=== PATIENT | female | born 1995 | race Caucasian/White ===

== ENCOUNTER 2020-06-02 09:18 | Emergency (ER) | payer BC, SELFPAY ==
[2020-06-02 09:22] VITALS: BP 128/77; PULSE 97; RESP 17; TEMP 37.1; O2SAT 100
[2020-06-02] MEDS: ONDANSETRON HCL ODT 4 MG TABLET PO (10:07)
[2020-06-02] MEDS: LORazepam (*CRX) 1 MG TABLET PO (10:07)
[2020-06-02] MEDS: FAMOTIDINE 20 MG TABLET PO (10:07)
--- NOTE | 2020-06-02 10:39 | ED.GENADULT ---
HPI - General Adult General Chief complaint: Nausea/Vomiting/Diarrhea Stated complaint: n/v Time Seen by Provider: 06/02/20 09:25 Source: patient Mode of arrival: ambulatory Limitations: no limitations History of Present Illness HPI narrative: Patient is a 24-year-old female who presents with irritable bowel syndrome with diarrhea since her boyfriend broke up with her 2 days ago also noting nausea noting similar occurrence when she experiences stress denies suicidal or homicidal ideation presents in no distress denies other concerns was unable to go to work today due to her symptomology Related Data Home Medications Medication Instructions Recorded Confirmed cetirizine [Zyrtec] 10 mg PO DAILY 06/02/20 Allergies Allergy/AdvReac Type Severity Reaction Status Date / Time No Known Allergies Allergy Verified 06/02/20 09:27 Review of Systems Review of Systems: All systems reviewed & are unremarkable except as noted in HPI and below PMFSH Past Medical History Medical History (Updated 06/02/20 @ 10:43 by Andrae Palacio PA-C) Anxiety Family History Family History (Updated 05/08/18 @ 10:30 by DOCTOR UNKNOWN) Father Family history of thyroid disease Mother Family history of thyroid disease Hypertension Sibling Family history of thyroid disease Grandparent Diabetes mellitus Family history of hypercholesterolemia Family history of glaucoma Hypertension Family history of cardiovascular disease Cerebrovascular accident Family history of malignant neoplasm Social History Social History Smoking status: Never smoker Alcohol intake: never Gender identity (if verbalized by the patient): Female Exam Narrative: Exam Narrative: GENERAL: Well-appearing, well-nourished, and in no acute distress. HEAD: Normocephalic, atraumatic. EYES: PERRLA and EOMI. ENT: Nares clear, no rhinorrhea or epistaxis. Mucous membranes moist. NECK: Supple. No adenopathy or masses. CHEST: Clear to auscultation. No respiratory distress. No wheezes rales or rhonchi HEART: Regular rate and rhythm. No murmur heard. Normal peripheral pulses. ABDOMEN: Soft, nontender, nondistended EXTREMITIES: Normal range of motion. No edema. SKIN: Warm, dry, no rash. NEURO: No focal deficits. Alert and oriented x3. Cranial nerves II through XII grossly intact PSYCH: Normal mood and affect. Course Course Emergency Course: Patient in the room will be discharged home given medications felt appropriate for outpatient reevaluation Vital Signs Vital signs: Vital Signs Temperature 98.7 F 06/02/20 09:22 Pulse Rate 97 06/02/20 09:22 Respiratory Rate 17 06/02/20 09:22 Blood Pressure 128/77 06/02/20 09:22 Pulse Oximetry 100 06/02/20 09:22 Temperature 98.7 F 06/02/20 09:22 Pulse Rate 97 06/02/20 09:22 Respiratory Rate 17 06/02/20 09:22 Blood Pressure 128/77 06/02/20 09:22 Pulse Oximetry 100 06/02/20 09:22 Medical Decision Making MDM Narrative Medical decision making narrative: Patient in the room in no distress aware of case findings treatment plan diagnosis felt appropriate for discharge home will be given primary care resources Vital Signs Vital Signs: Vital Signs Temperature 98.7 F 06/02/20 09:22 Pulse Rate 97 06/02/20 09:22 Respiratory Rate 17 06/02/20 09:22 Blood Pressure 128/77 06/02/20 09:22 Pulse Oximetry 100 06/02/20 09:22 Temperature 98.7 F 06/02/20 09:22 Pulse Rate 97 06/02/20 09:22 Respiratory Rate 17 06/02/20 09:22 Blood Pressure 128/77 06/02/20 09:22 Pulse Oximetry 100 06/02/20 09:22 Discharge Plan Discharge Clinical Impression: Diarrhea Patient Disposition: Home, Self-Care Condition: Stable Instructions: Antibiotic Form, Acute Diarrhea (ED) Additional Instructions: Follow up with your primary care doctor tommorrow to set up for reevaluation. Go to ER for worsening
[2020-06-02 11:07] VITALS: BP 123/73; PULSE 88; RESP 17; O2SAT 100
== END 2020-06-02 11:10 | disposition home or self-care (01) ==
PROVIDERS: Emergency Provider Emergency Medicine
DX: R19.7 Diarrhea, unspecified (principal)
CPT/HCPCS: 99283; A9270

== ENCOUNTER 2020-06-02 19:34 | Emergency (ER) | payer BC, SELFPAY ==
[2020-06-02 19:35] VITALS: BP 110/73; PULSE 94; RESP 16; O2SAT 100
[2020-06-02] MEDS: ONDANSETRON HCL ODT 4 MG TABLET PO (20:14)
[2020-06-02] MEDS: LORazepam (*CRX) 1 MG TABLET PO (20:14)
[2020-06-02] MEDS: HYOSCYAMINE SULFATE 0.125 MG TABLET PO (20:14)
--- NOTE | 2020-06-02 20:15 | ED.NAVMDI ---
HPI - Nausea/Vomiting/Diarrhea General Chief complaint: Nausea/Vomiting/Diarrhea Stated complaint: n/v Time Seen by Provider: 06/02/20 19:39 Source: patient, family and old records reviewed Mode of arrival: ambulatory Limitations: no limitations History of Present Illness HPI Narrative: Patient is a 24-year-old female who presents to emergency department for evaluation of GI upset patient is going through a break-up with history of IBS which onset discomfort of the abdomen patient notes a few loose stools since this morning when she was evaluated patient notes nausea but denies emesis notes that she is able to tolerate p.o. intake has not taken anything for her symptoms since she left the emergency department and on arrival is in no distress Related Data Home Medications Medication Instructions Recorded Confirmed cetirizine [Zyrtec] 10 mg PO DAILY 06/02/20 Allergies Allergy/AdvReac Type Severity Reaction Status Date / Time No Known Allergies Allergy Verified 06/02/20 19:35 Review of Systems Review of Systems: All systems reviewed & are unremarkable except as noted in HPI and below PMFSH Past Medical History Medical History Anxiety Family History Family History (Updated 05/08/18 @ 10:30 by DOCTOR UNKNOWN) Father Family history of thyroid disease Mother Family history of thyroid disease Hypertension Sibling Family history of thyroid disease Grandparent Diabetes mellitus Family history of hypercholesterolemia Family history of glaucoma Hypertension Family history of cardiovascular disease Cerebrovascular accident Family history of malignant neoplasm Social History Social History Smoking status: Never smoker Alcohol intake: never Gender identity (if verbalized by the patient): Female Exam Narrative: Exam Narrative: GENERAL: Well-appearing, well-nourished, and in no acute distress. HEAD: Normocephalic, atraumatic. EYES: PERRLA and EOMI. ENT: Nares clear, no rhinorrhea or epistaxis. Mucous membranes moist. CHEST: Clear to auscultation. No respiratory distress. No wheezes rales or rhonchi HEART: Regular rate and rhythm. No murmur heard. Normal peripheral pulses. ABDOMEN: Soft, mild tenderness of the abdomen no rebound or guarding, nondistended EXTREMITIES: Normal range of motion. No edema. SKIN: Warm, dry, no rash. NEURO: No focal deficits. Alert and oriented x3. PSYCH: Normal mood and affect. Course Course Emergency Course: Patient in the room in no distress aware of case findings treatment plan and diagnosis Vital Signs Vital signs: Vital Signs Pulse Rate 94 06/02/20 19:35 Respiratory Rate 16 06/02/20 19:35 Blood Pressure 110/73 06/02/20 19:35 Pulse Oximetry 100 06/02/20 19:35 Pulse Rate 94 06/02/20 19:35 Respiratory Rate 16 06/02/20 19:35 Blood Pressure 110/73 06/02/20 19:35 Pulse Oximetry 100 06/02/20 19:35 MDM - Nausea/Vomiting/Diarrhea MDM Narrative Medical decision making narrative: Patient with likely IBS symptoms with history of similar occurrence will be sent home with medications this time Discharge Plan Discharge Clinical Impression: Diarrhea Patient Disposition: Home, Self-Care Condition: Stable Instructions: Antibiotic Form, Acute Diarrhea (ED) Additional Instructions: Follow up with your primary care doctor tommorrow to set up for reevaluation in the next 7 days. Go to ER for worsening pain, nausea/vomitting, fever/chills, chest pain, shortness of breath, blood in stools or urine, etc. or any other concerns. Take any prescribed medications as directed. Stay well-hydrated If you do not have a drug allergy to tylenol and can tolerate it then take tylenol as needed for discomfort/pain. Prescriptions: New hyoscyamine sulfate [Levsin] 0.125 mg tablet 0.125 mg PO QID Qty: 7 RF: 0 o
[2020-06-02 20:43] VITALS: BP 131/85; PULSE 82; RESP 17; O2SAT 100
== END 2020-06-02 20:45 | disposition home or self-care (01) ==
PROVIDERS: Emergency Provider Family Medicine
DX: R19.7 Diarrhea, unspecified (principal)
CPT/HCPCS: 99283; A9270

== ENCOUNTER 2020-08-08 14:08 | Emergency (ER) | payer BC, SELFPAY ==
[2020-08-08 14:19] VITALS: BP 115/66; PULSE 94; RESP 18; TEMP 35.9; O2SAT 100
--- NOTE | 2020-08-08 14:25 | ED.NAVMDI ---
HPI - Nausea/Vomiting/Diarrhea General Chief complaint: Nausea/Vomiting/Diarrhea Stated complaint: n/v/d Time Seen by Provider: 08/08/20 14:13 Source: RN notes reviewed History of Present Illness HPI Narrative: Patient presents to emergency department from home for nausea and vomiting. Patient states that she developed nausea vomiting approximately 1 day ago states associate with generalized abdominal pain described as cramping. States she has been having intermittent diarrhea for the past several weeks. Denies any fevers or chills chest pain shortness of breath or any other symptoms. She states she took no medication for the symptoms she denies any other symptoms at this time Related Data Home Medications Medication Instructions Recorded Confirmed cetirizine [Zyrtec] 10 mg PO DAILY 06/02/20 Allergies Allergy/AdvReac Type Severity Reaction Status Date / Time No Known Allergies Allergy Verified 06/02/20 19:35 Review of Systems Review of Systems: Narrative: Gen.: Denies fevers or chills ENT: Denies congestion Respiratory: Denies shortness of breath or cough CV: Denies chest pain or palpitations GI: See HPI denies burning, urgency, frequency or hematuria Musculoskeletal: Denies back pain or muscle pain Neuro: Denies numbness, tingling, weakness or focal weakness Skin: Denies rash Except as documented, all other systems reviewed and negative [facility] Past Medical History Medical History Anxiety Family History Family History (Updated 05/08/18 @ 10:30 by DOCTOR UNKNOWN) Father Family history of thyroid disease Mother Family history of thyroid disease Hypertension Sibling Family history of thyroid disease Grandparent Diabetes mellitus Family history of hypercholesterolemia Family history of glaucoma Hypertension Family history of cardiovascular disease Cerebrovascular accident Family history of malignant neoplasm Social History Social History Smoking status: Never smoker Alcohol intake: never Gender identity (if verbalized by the patient): Female Exam Narrative: Exam Narrative: APPEARANCE: No acute distress, nontoxic, resting in bed HEENT: Normocephalic, atraumatic, OMM RESPIRATORY: No respiratory distress, clear to auscultation bilaterally with no rhonchi wheezing or rales CARDIOVASCULAR: RRR s murmur ABDOMINAL: Soft, nondistended, diffusely tender to palpation no rebound or guarding MUSCULOSKELETAl: Moves all extremities. No clubbing, cyanosis or edema. NEURO: Awake and alert. Following commands, speech normal, no focal deficits SKIN:: Warm, dry. Normal Color PSYCHIATRIC: Normal affect/mood Course Course Emergency Course: Reviewed old records Patient states that they are feeling much better at this time. States abdominal pain has resolved. Repeat abdominal exam shows the patient's abdomen to be soft and nontender. Discussed with patient results of workup and diagnosis. Discussed need for follow-up with primary care physician, reasons to return to the emergency department in proper use of medication. Patient understands and agrees to current treatment plan Vital Signs Vital signs: Vital Signs Temperature 96.7 F L 08/08/20 14:19 Pulse Rate 94 08/08/20 14:19 Respiratory Rate 18 08/08/20 14:19 Blood Pressure 115/66 08/08/20 14:19 Pulse Oximetry 100 08/08/20 14:19 Temperature 96.7 F L 08/08/20 14:19 Pulse Rate 94 08/08/20 14:19 Respiratory Rate 18 08/08/20 14:19 Blood Pressure 115/66 08/08/20 14:19 Pulse Oximetry 100 08/08/20 14:19 MDM - Nausea/Vomiting/Diarrhea MDM Narrative Medical decision making narrative: Patient's abdomen is soft without significant pain or signs of surgical abdomen on serial exams. Lab and x-ray evaluations are reviewed and patient is felt to be a reasonable candidate for outpatient management. Patient was i
[2020-08-08] MEDS: SODIUM CHLORIDE 0.9% IV 1,000 ML 999 ML IV CONT (14:28)
[2020-08-08 14:31] LABS: Basophils Percent Auto 0.5 % (0.2-1.2); Eosinophils Absolute Auto 0.1 K/mm3 (0-0.3); Eosinophils Percent Auto 0.9 % (0-4.4); Hematocrit 41.9 % (37.0-47.0); Hemoglobin 14.1 g/dL (12.0-15.0); Immature Granulocyte Absolute 0.02 K/mm3 (0.00-0.031); Immature Granulocyte Percent A 0.2 % (0-0.5); Lymphocytes Percent Auto 18.9 % (18.3-44.2); Mean Corpuscular HGB Conc 33.7 g/dl (32-36); Mean Corpuscular Hemoglobin 30.6 pg (26-34); Mean Corpuscular Volume 90.9 fl (80-100); Mean Platelet Volume 8.6 fl (7.4-10.4); Monocytes Absolute Auto 0.3 K/mm3 (0.1-0.6); Monocytes Percent Auto 3.2 % (2.6-8.5); Neutrophils Absolute Auto 6.5 K/mm3 (1.3-6.7); Neutrophils Percent Auto 76.3 % (45.5-73.1); Platelet Count Result 351 k/mm3 (150-375); Red Blood Count 4.61 M/mm3 (4.2-5.4); White Blood Count 8.5 K/mm3 (4.5-10.0)
[2020-08-08] MEDS: ONDANSETRON INJ 4 MG/2 ML VIAL IV PUSH (14:31)
[2020-08-08] MEDS: FAMOTIDINE 20 MG/2 ML VIAL IV PUSH (14:31)
[2020-08-08 14:51] LABS: Alanine Aminotransferase 12 U/L (4-35); Albumin Level 4.7 g/dL (3.5-5.1); Alkaline Phosphatase 81 U/L (38-126); Anion Gap 8 mmol/L (8-16); Aspartate Amino Transferase 28 U/L (14-36); Bilirubin,Total 0.2 mg/dL (0.2-1.3); Blood Urea Nitrogen 9 mg/dL (7-17); Calcium 9.5 mg/dL (8.4-10.2); Carbon Dioxide 26 mmol/L (22-30); Chloride 106 mmol/L (98-107); Estimated CRCL calculation 123 ml/min; Estimated Glomerular Filt Rate > 60; Glucose 112 mg/dL (65-105); Lipase 49 U/L (23-300); Potassium 3.6 mmol/L (3.4-5.0); Sodium 140 mmol/L (137-145)
[2020-08-08 15:33] LABS: Add Urine Microscopic? YES; Appearance Urine Clear (Clear); Bacteria Urine Trace /hpf; Bilirubin Urine Negative (Negative); Blood Urine Negative (Negative); Color Urine Straw (Yellow); Glucose Urine UA Negative (Negative); Ketones Urine 1+ mg/dL (Negative); Leukocyte Esterase Ur Trace LEU/UL (Negative); Nitrate Urine Negative (Negative); Protein Urine Negative (Negative); RBC Urine 0-2 /hpf (0-2); Specific Grav Ur 1.008 (1.001-1.035); Squamous Epithelial Cell Urine Few /hpf (Few); Transitional Epi Cells Urine Rare /hpf (None Seen); Urobilinogen Urine Negative mg/dL (<2.0); WBC Urine 0-3 /hpf
== END 2020-08-08 16:33 | disposition home or self-care (01) ==
PROVIDERS: Emergency Provider Emergency Medicine
DX: R11.2 Nausea with vomiting, unspecified (principal); R10.84 Generalized abdominal pain
CPT/HCPCS: 36415; 80053; 81001; 83690; 85025; 96361; 96374; 96375; 99284; J0131; J2405; J7030

== ENCOUNTER 2021-08-11 18:37 | Emergency (ER) | payer OTHER, BC, SELFPAY ==
[2021-08-11 18:48] VITALS: BP 121/88; PULSE 104; RESP 16; TEMP 36.9; O2SAT 97
--- NOTE | 2021-08-11 19:20 | ED.NAVMDI ---
HPI - Nausea/Vomiting/Diarrhea General Chief complaint: Nausea/Vomiting/Diarrhea Stated complaint: VOMITING/DIARRHEA/ABD PAIN Time Seen by Provider: 08/11/21 19:05 Source: patient, RN notes reviewed and old records reviewed Mode of arrival: ambulatory Limitations: no limitations History of Present Illness HPI Narrative: 25-year-old female who presents to [facility] with complaints of nausea and vomiting since 729 today with diarrhea. Patient states around 3 PM she was feeling better ate a tuna fish sandwich and started with diarrhea again with last stool around 5 PM tonight. Patient states that she has a lot of digestives issues thinks she may have IBS bur has not been formally diagnosed. Patient has some abdominal cramping with no sharp abdominal pain stated, no McBurney point tenderness or any flank pain noted on exam. Patient did have emesis while in exam room. MD elicited complaint: nausea, vomiting, diarrhea and other (abdominal cramping) Onset (ago): day(s) (1) Description of vomiting: food contents Description of diarrhea: watery Associated nausea: Yes Associated abdominal pain: Yes Location of pain: other (mid abdominal area) Pain consistency: intermittent Severity: moderate Pain scale (0-10): 4 Quality: cramping Relieving factors: none Related Data Home Medications Medication Instructions Recorded Confirmed cetirizine [Zyrtec] 10 mg PO DAILY 06/02/20 Allergies Allergy/AdvReac Type Severity Reaction Status Date / Time No Known Allergies Allergy Verified 06/02/20 19:35 Review of Systems Review of Systems: CONSTITUTIONAL: Denies fever, chills, or sweats. EYES: Denies visual changes, redness, or discharge. ENT: Positive for some nasal rhinorrhea,denies any congestion, sore throat, or otalgia. CARDIOVASCULAR: Denies chest pain, palpitations, or edema. RESPIRATORY: Denies cough or dyspnea. GASTROINTESTINAL: mid abdominal cramping abdominal pain, nausea, vomiting, and diarrhea. GENITOURINARY: Denies dysuria or hematuria. SKIN: Denies rash or itching. MUSCULOSKELETAL: Denies back pain, joint pain, or myalgia. NEUROLOGIC: Denies headache, numbness, or weakness. PSYCHIATRIC: Denies anxiety or depression. All systems reviewed & are unremarkable except as noted in HPI and below PMFSH Past Medical History Medical History (Updated 08/11/21 @ 19:47 by Hanny Cerda NP) Anxiety Surgical History Surgical History (Updated 08/11/21 @ 19:39 by Hanny Cerda NP) No history of previous surgery Family History Family History Father Family history of thyroid disease Mother Family history of thyroid disease Hypertension Sibling Family history of thyroid disease Grandparent Diabetes mellitus Family history of hypercholesterolemia Family history of glaucoma Hypertension Family history of cardiovascular disease Cerebrovascular accident Family history of malignant neoplasm Social History Social History Smoking status: Never smoker Alcohol intake: never Gender identity (if verbalized by the patient): Female Comments At time of signature, agree with nursing past medical, surgical, social and family history. There is no relevant family history pertinent to the presenting complaint Exam Narrative: GENERAL: Well-appearing, well-nourished, and in mild acute distress. HEAD: Normocephalic, atraumatic. EYES: PERRLA and EOMI. ENT: Nares patent with some clear rhinorrhea no epistaxis. Mucous membranes moist. TMs normal with good light reflex, throat pink with no lesions or exudates no tonsil enlargement NECK: Supple. No lymphadenopathy CHEST: Clear to auscultation. No respiratory distress. SaO2 97% on room air HEART: Regular rate and rhythm. No murmur heard. Normal peripheral pulses. ABDOMEN: Soft, nontender to palpation with no McBurney point tenderness, nondistended, normal active b
[2021-08-11] MEDS: ONDANSETRON HCL ODT 4 MG TABLET SUBLINGUAL (19:40)
== END 2021-08-11 19:55 | disposition home or self-care (01) ==
PROVIDERS: Emergency Provider Registered Nurse; PCP Family Medicine
DX: K52.9 Noninfective gastroenteritis and colitis, unspecified (principal); F41.9 Anxiety disorder, unspecified
CPT/HCPCS: 87804; 99213; A9270; G0463

== ENCOUNTER 2021-08-12 13:57 | Emergency (ER) | payer OTHER, BC, SELFPAY ==
[2021-08-12 13:59] VITALS: BP 114/70; PULSE 86; RESP 16; TEMP 36.2; O2SAT 100
[2021-08-12] MEDS: PROMETHAZINE HCL 25 MG/ML AMPUL 12.5 MG IV PUSH (14:29)
[2021-08-12] MEDS: SODIUM CHLORIDE 0.9% IV 1,000 ML 999 ML IV CONT (14:29)
[2021-08-12 14:39] LABS: Basophils Percent Auto 0.3 % (0.2-1.2); Eosinophils Percent Auto 0.2 % (0-4.4); Hematocrit 41.3 % (37.0-47.0); Immature Granulocyte Absolute 0.05 K/mm3 (0.00-0.031); Immature Granulocyte Percent A 0.4 % (0-0.5); Lymphocytes Absolute Auto 1.75 K/mm3 (0.9-3.2); Lymphocytes Percent Auto 15.7 % (18.3-44.2); Mean Corpuscular HGB Conc 33.9 g/dl (32-36); Mean Corpuscular Hemoglobin 31.8 pg (26-34); Mean Corpuscular Volume 93.9 fl (80-100); Mean Platelet Volume 8.9 fl (7.4-10.4); Monocytes Absolute Auto 0.6 K/mm3 (0.1-0.6); Monocytes Percent Auto 5.2 % (2.6-8.5); Neutrophils Absolute Auto 8.7 K/mm3 (1.3-6.7); Neutrophils Percent Auto 78.2 % (45.5-73.1); Platelet Count Result 379 k/mm3 (150-375); White Blood Count 11.2 K/mm3 (4.5-10.0)
[2021-08-12 14:47] LABS: Alanine Aminotransferase 20 U/L (4-35); Albumin Level 4.9 g/dL (3.5-5.1); Alkaline Phosphatase 79 U/L (38-126); Anion Gap 14 mmol/L (8-16); Aspartate Amino Transferase 31 U/L (14-36); Bilirubin,Total 0.6 mg/dL (0.2-1.3); Blood Urea Nitrogen 12 mg/dL (7-17); Calcium 9.3 mg/dL (8.4-10.2); Carbon Dioxide 21 mmol/L (22-30); Chloride 106 mmol/L (98-107); Estimated CRCL calculation 125 ml/min; Estimated Glomerular Filt Rate > 60; Glucose 104 mg/dL (65-110); Lipase 56 U/L (23-300); Potassium 3.8 mmol/L (3.4-5.0); Sodium 141 mmol/L (137-145)
--- NOTE | 2021-08-12 15:04 | ED.NAVMDI ---
HPI - Nausea/Vomiting/Diarrhea General Chief complaint: Nausea/Vomiting/Diarrhea Stated complaint: N/V/D Time Seen by Provider: 08/12/21 14:12 History of Present Illness HPI Narrative: Patient is a 25-year-old female who presents ER with nausea/vomiting/diarrhea. Ongoing over the last couple days. Was seen in urgent care yesterday and given Zofran. She reports she had 7 episodes of emesis today despite the Zofran so she came in for further evaluation. No fevers or chills or sweats. Diffuse abdominal cramping. Diarrhea has slowed down. No blood in stool or vomit. No known sick contacts. Related Data Home Medications Medication Instructions Recorded Confirmed cetirizine [Zyrtec] 10 mg PO DAILY 06/02/20 Allergies Allergy/AdvReac Type Severity Reaction Status Date / Time No Known Allergies Allergy Verified 06/02/20 19:35 Review of Systems Review of Systems: All systems reviewed & are unremarkable except as noted in HPI and below Constitutional: Constitutional: Denies chills, Denies fever(s) and Denies weakness ENT: Denies nasal congestion and Denies sore throat Cardiovascular: Cardiovascular: Denies chest pain, Denies rapid heart rate and Denies radiating jaw, neck or arm pain Respiratory: Respiratory: Denies cough and Denies dyspnea Gastrointestinal: Gastrointestinal: Reports abdominal pain, Denies heartburn, Reports diarrhea, Reports nausea and Reports vomiting Genitourinary: Genitourinary: Denies nocturia, Denies dysuria and Denies flank pain PMFSH Past Medical History Medical History (Updated 08/12/21 @ 18:03 by Shyam Bertrand MD) Anxiety Surgical History Surgical History (Updated 08/11/21 @ 19:39 by Hanny Cerda NP) No history of previous surgery Family History Family History Father Family history of thyroid disease Mother Family history of thyroid disease Hypertension Sibling Family history of thyroid disease Grandparent Diabetes mellitus Family history of hypercholesterolemia Family history of glaucoma Hypertension Family history of cardiovascular disease Cerebrovascular accident Family history of malignant neoplasm Social History Social History Smoking status: Never smoker Alcohol intake: never Gender identity (if verbalized by the patient): Female Exam Narrative: GENERAL: Well-appearing, well-nourished, and in no acute distress. HEAD: Normocephalic, atraumatic. CHEST: Clear to auscultation. No respiratory distress. HEART: Regular rate and rhythm. Normal peripheral pulses. ABDOMEN: Soft, nontender, nondistended. EXTREMITIES: Normal range of motion. No edema. SKIN: Warm, dry, no rash. NEURO: Alert and oriented x3. PSYCH: Normal mood and affect. Course Course Emergency Course: Patient feeling much better after Phenergan. Able to tolerate oral fluids. Discharge home. Vital Signs Vital signs: Vital Signs Temperature 97.2 F L 08/12/21 13:59 Pulse Rate 86 08/12/21 13:59 Respiratory Rate 16 08/12/21 13:59 Blood Pressure 114/70 08/12/21 13:59 Pulse Oximetry 100 08/12/21 13:59 Temperature 97.2 F L 08/12/21 13:59 Pulse Rate 86 08/12/21 13:59 Respiratory Rate 16 08/12/21 13:59 Blood Pressure 114/70 08/12/21 13:59 Pulse Oximetry 100 08/12/21 13:59 MDM - Nausea/Vomiting/Diarrhea Lab Data Result diagrams: 08/12/21 14:33 08/12/21 14:33 Labs: Lab Results 08/12/21 08/12/21 08/12/21 Range/Units 14:33 14:33 14:33 WBC 11.2 H (4.5-10.0) K/mm3 RBC 4.40 (4.2-5.4) M/mm3 Hgb 14.0 (12.0-15.0) g/dL Hct 41.3 (37.0-47.0) % MCV 93.9 (80-100) fl MCH 31.8 (26-34) pg MCHC 33.9 (32-36) g/dl RDW 13.0 (11.5-14.5) % Plt Count 379 H (150-375) k/mm3 MPV 8.9 (7.4-10.4) fl Immature Gran % (Auto) 0.4 (0-0.5) % Neut % (Auto) 78.2
[2021-08-12 15:29] LABS: Add Urine Microscopic? YES; Appearance Urine Cloudy (Clear); Bacteria Urine Trace /hpf; Bilirubin Urine Negative (Negative); Blood Urine Negative (Negative); Color Urine Yellow (Yellow); Glucose Urine UA Negative (Negative); Ketones Urine 2+ mg/dL (Negative); Leukocyte Esterase Ur Trace LEU/UL (Negative); Mucus Urine Heavy /lpf; Nitrate Urine Negative (Negative); Protein Urine 2+ mg/dL (Negative); Squamous Epithelial Cell Urine Many /hpf (Few); Urobilinogen Urine Negative mg/dL (<2.0)
[2021-08-12 15:52] LABS: Specific Grav Ur 1.032 (1.001-1.035)
[2021-08-12 18:17] VITALS: BP 135/78; PULSE 78; RESP 18; O2SAT 99
== END 2021-08-12 18:18 | disposition home or self-care (01) ==
PROVIDERS: Emergency Provider Emergency Medicine; PCP Family Medicine
DX: K52.9 Noninfective gastroenteritis and colitis, unspecified (principal)
CPT/HCPCS: 36415; 80053; 81001; 83690; 85025; 87086; 87088; 96361; 96374; 99284; J2550; J7030

== ENCOUNTER 2022-03-13 10:00 | Outpatient (CLI) | payer OTHER, BC, SELFPAY ==
--- NOTE | ~2022-03-13 | US_ITS ---
EXAMINATION: US pelvic complete DATE: 03/13/2022 10:28 INDICATION: Left lower pelvic pain TECHNIQUE: Multiple transabdominal sonographic images of the pelvis were obtained. COMPARISON: None. FINDINGS: The uterus measures 7.5 x 3.9 x 5.4 cm. The endometrial complex measures 9 mm. The right ov laurita is not visualized however no right adnexal abnormality is seen. The left ovary measures 3.5 x 2.1 x 2.1 cm and contains a 12 mm cyst. There is normal vascular flow in the left ovary. There is no raquel e fluid in the pelvis. IMPRESSION: 1. No sonographic correlate for the patient's symptoms. Reviewed, dictated and finalized at location A.
== END 2022-03-13 10:01 | disposition home or self-care (01) ==
PROVIDERS: PCP Family Medicine; Visit Provider Obstetrics & Gynecology
DX: R10.2 Pelvic and perineal pain (principal)
CPT/HCPCS: 76856

== ENCOUNTER 2022-04-02 14:20 | Emergency (ER) | payer OTHER, SELFPAY ==
[2022-04-02 14:27] VITALS: BP 104/69; PULSE 93; RESP 16; TEMP 36.3; O2SAT 100
--- NOTE | 2022-04-02 14:39 | ED.URI ---
HPI - URI/Sore Throat General Chief Complaint: Upper Respiratory Infection Stated Complaint: covid positive, swollen tonsils Time Seen by Provider: 04/02/22 14:42 Source: patient and RN notes reviewed Mode of arrival: ambulatory Limitations: no limitations History of Present Illness HPI Narrative: 26-year-old female presented for complaints of right-sided sore throat for 2 days. She does positive for COVID on 03/28/2022, symptoms started on 03/27. He endorses his ?likely including and swelling. She denies any associated nausea, any confusion chills. She endorses severe seasonal allergies and continues to have postnasal drainage from COVID. She takes daily Zyrtec and is not taking anything else for symptoms. She denies sick contacts. MD elicited complaint: sore throat Related Data Home Medications Medication Instructions Recorded Confirmed cetirizine 10 mg tablet (Zyrtec) 10 mg PO DAILY 06/02/20 03/08/22 Allergies Allergy/AdvReac Type Severity Reaction Status Date / Time No Known Allergies Allergy Verified 03/08/22 08:54 Review of Systems Review of Systems: CONSTITUTIONAL: denies malaise, chills, sweats, fever EYES: Denies visual changes, redness, or discharge ENT: Denies rhinorrhea, congestion, otalgia CARDIOVASCULAR: Denies chest pain, palpitations, edema RESPIRATORY: Denies dyspnea GASTROINTESTINAL: Denies abdominal pain, nausea, vomiting, diarrhea NEUROLOGIC: Denies headache PMFSH Past Medical History Medical History Anxiety Surgical History Surgical History No history of previous surgery Family History Family History Father Family history of thyroid disease Mother Family history of thyroid disease Hypertension Sibling Family history of thyroid disease Grandparent Diabetes mellitus Family history of hypercholesterolemia Family history of glaucoma Hypertension Family history of cardiovascular disease Cerebrovascular accident Family history of malignant neoplasm Social History Social History Smoking status: Never smoker Alcohol intake: never Substance use: current Substance use type: marijuana Other substance usage details: occassionally 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 TMs pearly gaona with light reflex bilaterally; no tragal tenderness. Oropharynx normal without lesions or exudate, mild right tonsillar swelling 1+ no drooling, no hoarseness, no trismus, uvula midline. No tripod positioning, muffled voice, soft palate or pharyngeal wall bulging NECK: Supple. No lymphadenopathy CHEST: Clear to auscultation, breath sounds equal. HEART: Regular rate and rhythm. No murmur heard. SKIN: Warm, dry, no rash. NEURO: Alert and oriented x3. Course Course Emergency Course: Patient is aware of diagnosis, understands and agrees to treatment plan. Anticipatory guidance given. Patient agrees to follow-up as directed and is aware of reasons to seek care at the emergency department. Portions of this record may have been created with voice recognition software Level of Care: Express Care Visit Vital Signs Vital signs: Vital Signs Temperature 97.3 F L 04/02/22 14:27 Pulse Rate 93 04/02/22 14:27 Respiratory Rate 16 04/02/22 14:27 Blood Pressure 104/69 04/02/22 14:27 Pulse Oximetry 100 04/02/22 14:27 Oxygen Delivery Room Air 04/02/22 14:27 Temperature 97.3 F L 04/02/22 14:27 Pulse Rate 93 04/02/22 14:2
== END 2022-04-02 15:11 | disposition home or self-care (01) ==
PROVIDERS: Emergency Provider Nurse Practitioner Family; PCP Family Medicine
DX: J02.0 Streptococcal pharyngitis (principal); Z86.16 Personal history of COVID-19
CPT/HCPCS: 87880; 99213; G0463

== ENCOUNTER 2022-06-08 17:17 | Outpatient (CLI) | payer OTHER, BC, SELFPAY ==
[2022-06-08 17:54] LABS: Basophils Absolute Auto 0.1 K/mm3 (0.0-0.1); Basophils Percent Auto 0.8 % (0.2-1.2); Eosinophils Absolute Auto 0.4 K/mm3 (0-0.3); Eosinophils Percent Auto 4.6 % (0-4.4); Hemoglobin 13.6 g/dL (12.0-15.0); Immature Granulocyte Absolute 0.02 K/mm3 (0.00-0.031); Immature Granulocyte Percent A 0.3 % (0-0.5); Lymphocytes Absolute Auto 2.85 K/mm3 (0.9-3.2); Lymphocytes Percent Auto 36.5 % (18.3-44.2); Mean Corpuscular HGB Conc 33.2 g/dl (32-36); Mean Corpuscular Hemoglobin 30.8 pg (26-34); Mean Platelet Volume 8.5 fl (7.4-10.4); Monocytes Absolute Auto 0.6 K/mm3 (0.1-0.6); Monocytes Percent Auto 7.7 % (2.6-8.5); Neutrophils Absolute Auto 3.9 K/mm3 (1.3-6.7); Neutrophils Percent Auto 50.1 % (45.5-73.1); Platelet Count Result 369 k/mm3 (150-375); Red Blood Count 4.41 M/mm3 (4.2-5.4); Red Cell Distribution Width 12.5 % (11.5-14.5); White Blood Count 7.8 K/mm3 (4.5-10.0)
[2022-06-08 18:06] LABS: Alanine Aminotransferase 15 U/L (6-35); Albumin Level 4.9 g/dL (3.5-5.1); Alkaline Phosphatase 62 U/L (38-126); Anion Gap 9 mmol/L (8-16); Aspartate Amino Transferase 21 U/L (14-36); Bilirubin,Total 0.3 mg/dL (0.2-1.3); Blood Urea Nitrogen 10 mg/dL (7-17); Calcium 9.2 mg/dL (8.4-10.2); Carbon Dioxide 24 mmol/L (22-30); Chloride 103 mmol/L (98-107); Estimated Glomerular Filt Rate > 60; Glucose 93 mg/dL (65-110); Potassium 3.9 mmol/L (3.4-5.0); Sodium 136 mmol/L (137-145)
[2022-06-12 10:39] LABS: ANA Cascade Screen Negative (Negative)
[2022-06-12 22:27] LABS: Anti Cyclic Citrullinated Pept <16 Units (<20)
== END 2022-06-08 17:18 | disposition home or self-care (01) ==
PROVIDERS: PCP Family Medicine; Visit Provider Family Medicine
DX: F41.1 Generalized anxiety disorder (principal); R10.2 Pelvic and perineal pain; Z82.61 Family history of arthritis; M19.90 Unspecified osteoarthritis, unspecified site
CPT/HCPCS: 36415; 80053; 84443; 85025; 86038; 86200

== ENCOUNTER 2022-08-27 07:57 | Outpatient (CLI) | payer OTHER, BC, SELFPAY ==
[2022-08-27 09:02] LABS: Beta HCG Quantitative < 2.39 mIU/ML
== END 2022-08-27 07:58 | disposition home or self-care (01) ==
PROVIDERS: PCP Family Medicine; Visit Provider Student in an Organized Health Care Education/Training Program
DX: N92.6 Irregular menstruation, unspecified (principal)
CPT/HCPCS: 36415; 84702

== ENCOUNTER → 2023-07-24 15:55 | Outpatient (REF) | payer BC, SELFPAY | LOC: ANHLAB 15:55 | PROVIDERS: PCP Family Medicine; Visit Provider Plastic Surgery | DX: L98.0 Pyogenic granuloma (principal) | CPT/HCPCS: 88305 ==

== ENCOUNTER 2023-08-17 12:28 | Outpatient (CLI) | payer BC, SELFPAY ==
[2023-08-17 14:03] LABS: Basophils Absolute Auto 0.1 K/mm3 (0.0-0.1); Basophils Percent Auto 0.7 % (0.2-1.2); Eosinophils Absolute Auto 0.7 K/mm3 (0-0.3); Eosinophils Percent Auto 8.3 % (0-4.4); Hematocrit 42.2 % (37.0-47.0); Hemoglobin 13.6 g/dL (12.0-15.0); Immature Granulocyte Absolute 0.03 K/mm3 (0.00-0.031); Immature Granulocyte Percent A 0.4 % (0-0.5); Lymphocytes Absolute Auto 2.46 K/mm3 (0.9-3.2); Lymphocytes Percent Auto 29.9 % (18.3-44.2); Mean Corpuscular HGB Conc 32.2 g/dl (32-36); Mean Corpuscular Hemoglobin 30.7 pg (26-34); Mean Corpuscular Volume 95.3 fl (80-100); Mean Platelet Volume 8.9 fl (7.4-10.4); Monocytes Absolute Auto 0.6 K/mm3 (0.1-0.6); Monocytes Percent Auto 7.3 % (2.6-8.5); Neutrophils Absolute Auto 4.4 K/mm3 (1.3-6.7); Neutrophils Percent Auto 53.4 % (45.5-73.1); Platelet Count Result 393 k/mm3 (150-375); Red Blood Count 4.43 M/mm3 (4.2-5.4); Red Cell Distribution Width 12.7 % (11.5-14.5); White Blood Count 8.2 K/mm3 (4.5-10.0)
[2023-08-17 14:14] LABS: Alanine Aminotransferase 17 U/L (6-35); Albumin Level 4.5 g/dL (3.5-5.1); Alkaline Phosphatase 78 U/L (38-126); Anion Gap 6 mmol/L (8-16); Aspartate Amino Transferase 25 U/L (14-36); Bilirubin,Total 0.6 mg/dL (0.2-1.3); Blood Urea Nitrogen 12 mg/dL (7-17); Calcium 9.4 mg/dL (8.4-10.2); Carbon Dioxide 27 mmol/L (22-30); Chloride 106 mmol/L (98-107); Estimated Glomerular Filt Rate > 60; Glucose 105 mg/dL (65-110); Potassium 3.9 mmol/L (3.4-5.0); Sodium 139 mmol/L (137-145)
[2023-08-17 14:44] LABS: Iron 91 ug/dL (37-170)
[2023-08-17 14:53] LABS: Percent Iron Saturation 28 % (20-50)
[2023-08-20 13:49] LABS: Triiodothyronine T3 Free 4.7 pg/mL (2.3-4.2)
== END 2023-08-17 12:29 | disposition home or self-care (01) ==
PROVIDERS: PCP Family Medicine; Visit Provider Physician Assistant
DX: R53.83 Other fatigue (principal); D64.9 Anemia, unspecified; E07.9 Disorder of thyroid, unspecified
CPT/HCPCS: 36415; 80053; 82607; 83540; 83550; 84443; 84481; 85025

== ENCOUNTER 2023-09-24 16:31 | Outpatient (CLI) | payer BC, SELFPAY ==
[2023-09-26 15:24] LABS: ANA Cascade Screen NEGATIVE (NEGATIVE)
== END 2023-09-24 16:32 | disposition home or self-care (01) ==
LOC: ANHLAB 16:32
PROVIDERS: PCP Family Medicine; Visit Provider Physician Assistant
DX: M25.50 Pain in unspecified joint (principal)
CPT/HCPCS: 36415; 86038; 86225; 86235; 86364

== ENCOUNTER 2023-10-05 08:28 | Outpatient (CLI) | payer BC, SELFPAY ==
--- NOTE | ~2023-10-05 | XR_ITS ---
XR lumbar spine 2-3V DATE: 10/05/2023 09:20 INDICATION: Low back pain TECHNIQUE: AP, lateral, coned lateral lumbosacral views COMPARISON: None FINDINGS: There is minimal thoracolumbar dextroscoliosis. No fracture or bone destruction. Included lower thoracic and lumbar pedicles are intact. Lumbar and l umbosacral disc spaces are well preserved. The sacroiliac joints are intact. IMPRESSION: Mild dextroscoliosis Reviewed, dictated and finalized at location A. IMPRESSION: Mild dextroscoliosis
== END 2023-10-05 08:29 ==
PROVIDERS: PCP Family Medicine; Visit Provider Physician Assistant
DX: M54.50 Low back pain, unspecified (principal)
CPT/HCPCS: 72100